=== PATIENT | female | born 1950 | race Two or more races ===

== ENCOUNTER 2023-04-03 08:33 | Emergency (ER) | payer OTHER ==
[~2023-04-03] VITALS: Ht 170.2 cm; Wt 71.2 kg
[2023-04-03] MEDS ORDERED: LIPITOR20 MG PO (08:43)
[2023-04-03] MEDS ORDERED: NEURONTIN300 MG PO (08:43)
[2023-04-03] MEDS ORDERED: COZAAR25 MG PO (08:43)
[2023-04-03 11:17] LABS: CALCIUM 9.6 mg/dL (8.5-10.1); CREATININE SERUM 0.49 mg/dL (0.55-1.02); GFR 124.85; HEMATOCRIT 40.9 % (36.0-45.00); MEAN CELL VOLUME 89.5 fL (80.00-100.00); MEAN CORPUSCULAR HEMOGLOBIN 30.7 pg (27.00-32.0); MEAN CORPUSCULAR HGB CONC 34.3 g/dl (32.0-36.0); PLATELET COUNT 421 K/uL (150-450); POTASSIUM 4.56 mEq/L (3.5-5.1); RED BLOOD COUNT 4.57 M/uL (4.00-6.00); RED CELL DISTRIBUTION WIDTH 13.7 % (11.5-14.5)
[2023-04-03 11:57] LABS: PH,URINE 5.5 (5.0-8.0); URINE APPEARANCE Clear; URINE BILIRRUBIN Negative (NEGATIVE); URINE BLOOD Negative; URINE COLOR Yellow; URINE GLUCOSE Negative (NEGATIVE); URINE LEUKOCYTE Negative; URINE NITRATE Negative; URINE PROTEIN Negative (NEGATIVE); URINE UROBILINOGEN 0.2 E.U./dl
[2023-04-03 12:02] LABS: URINE BACTERIA 12.5 uL (0.0-1933); URINE EPITHELIAL CELLS 5.3 uL (0.0-38.8); URINE RBC 4.5 uL (0.0-20.8); URINE WBC 2.3 uL (0.0-23.2)
== END 2023-04-03 13:19 ==
LOC: ER 08:34
PROVIDERS: General Practice
DX: M54.9 Dorsalgia, unspecified (principal); I10 Essential (primary) hypertension; K57.30 Diverticulosis of large intestine without perforation or abscess without bleeding; M19.90 Unspecified osteoarthritis, unspecified site; G62.9 Polyneuropathy, unspecified
CPT/HCPCS: 36415; 96372; 99284; J1100

== ENCOUNTER 2025-03-14 06:53 | Emergency (ER) | payer OTHER ==
[~2025-03-14] VITALS: Ht 170.2 cm; Wt 68.9 kg
[~2025-03-14 06:53] MED LIST: COZAAR25 MG PO; LIPITOR20 MG PO; NEURONTIN300 MG PO
[2025-03-14 07:16] VITALS: BP 124/80; O2SAT 98
[2025-03-14 09:00] LABS: BASO % 0.7 % (0.1-1.2); EOS # 0.74 (0.04-0.54); EOS % 6.7 % (0.7-7.0); LYMPH # 3.42 (1.18-3.74); LYMPH % 31.0 % (19.3-53.1); MEAN PLATELET VOLUME 8.80 fl (9.4-12.4); MONO # 0.96 (0.24-0.82); MONO % 8.7 % (4.7-12.5); NEUT # 5.76 (1.56-6.13); NEUT % 52.3 % (34.0-71.1); RED CELL DISTRIBUTION WIDTH 13.3 % (11.6-14.4)
[2025-03-14 09:34] LABS: ALT/SGPT 19.0 U/L (12-78); AST/SGOT 11.0 U/L (15-37); BILIRUBIN TOTAL 0.33 mg/dL (0.3-1.2); BUN CREA RATIO 30.0 (7.0-25.0); CREATININE SERUM 0.47 mg/dL (0.55-1.02); GFR 130.26; GLOBULINA 3.8 G/DL (2.4-3.5); GLUCOSE FASTING 109.0 mg/dL (65-100); OSMOLALITY SERUM 286.0 MOSM/KG (275-295)
[2025-03-14 09:43] LABS: COVID-19 AG NEGATIVE (NEGATIVE)
[2025-03-14] MEDS ORDERED: GILTUSS COUGH-118 M1 PO (12:22)
[2025-03-14] MEDS ORDERED: AZITHROMYCIN500 MG PO (12:22)
[2025-03-14] MEDS ORDERED: ACETAMINOPHEN500 M1 PO (12:22)
[2025-03-14] MEDS ORDERED: XOPENEX CO1.25 MG/0. IH (12:26)
== END 2025-03-14 12:49 | disposition home or self-care (01) ==
LOC: ER 06:53
PROVIDERS: Preventive Medicine Public Health & General Preventive Medicine
DX: J06.9 Acute upper respiratory infection, unspecified (principal); Z20.822 Contact with and (suspected) exposure to COVID-19